=== PATIENT | female | born 1940 | race Caucasian/White ===

== ENCOUNTER 2016-09-11 09:30 | Outpatient (RCR) | payer MEDICARE, SELFPAY | END 2016-09-13 | LOC: INF 09:30 | PROVIDERS: Family Provider Nurse Practitioner Family; PCP Nurse Practitioner Family | DX: C34.90 Malignant neoplasm of unspecified part of unspecified bronchus or lung (principal) | CPT/HCPCS: 1036F; 36591; 36592; 80053; 82378; 85025; 96360; 96372; 96374; 96375; 96409; 99058; 99214; G8427; G8731; J1100; J2405; J2997; J9305; Q5101 ==